=== PATIENT | female | born 1975 | race Caucasian/White ===

== ENCOUNTER 2017-03-22 13:51 | Emergency (ER) | payer OTHER ==
[2017-03-22 14:32] LABS: BASOPHIL# 0.1 X 10^3uL (0.0-0.1); BASOPHILS 0.8 % (0.0-2.0); BLOOD UREA NITROGEN 11 mg/dL (7-17); CHLORIDE 106 mmol/L (98-107); EOSINOPHILS 1.2 % (0.0-6.0); EOSINOPHILS# 0.1 X 10^3uL (0.0-0.4); EST GLOMERULAR FILTRATION RATE > 60 mL/min; GLUCOSE 94 mg/dL (70-100); HEMATOCRIT 43.4 % (36.0-48.0); HEMOGLOBIN 14.8 g/dL (12.0-16.0); LYMPHOCYTES 30.5 % (20.0-40.0); LYMPHOCYTES# 2.1 X 10^3uL (0.8-3.8); MEAN CELL VOLUME 90.9 fL (80.0-100.0); MEAN CORPUS. HGB CONCENTRATION 34.1 g/dL (32.0-36.0); MEAN PLATELET VOLUME 9.4 fL (7.4-10.4); MONOCYTES 6.5 % (2.0-10.0); MONOCYTES# 0.4 X 10^3uL (0.2-1.0); NEUTROPHILS# 4.1 X 10^3uL (2.6-6.7); PLATELET COUNT 268 X 10^3uL (130-440); RED BLOOD COUNT 4.77 X 10^6uL (4.20-6.10); RED CELL DISTRIBUTION WIDTH 11.6 % (11.5-14.5); SODIUM 140 mmol/L (137-145); WHITE BLOOD COUNT 6.8 X 10^3uL (3.9-10.7)
--- NOTE | 2017-03-22 14:45 | ER PHYSICIAN DOCUMENTATION ---
Physician Documentation [facility] Name:Gloria Alvarez Age:41 yrs Sex:Female :1975 Arrival Date:03/22/2017 Time:13:51 Bed5 Private MD: Kee Castillo Disposition: 03/22 14:35 Chart complete. cd Disposition: 03/22/17 14:36 Discharged to Home/Self Care. Impression: Tinea Capitus & Corporis (Ringworm), Lymphadenitis. - Condition is Good. - Discharge Instructions: LYMPHANGITIS, RINGWORM, Skin. - Prescriptions for Cephalexin 250 mg Oral Capsule - take 1 capsule by ORAL route every 6 hours for 10 days; 40 capsule. Clotrimazole 1 % Topical Cream - Apply to affected area 1 application by TOPICAL route every 12 hours; 15 gram. - Medical Reconciliation form form. - Follow up: Matilda Murray DO; When: 4- 6 days; Reason: Recheck today's complaints, Continuance of care. - Problem is new. - Symptoms are unchanged. - Notes: Use Lotrimen Cream on the rash two times a day for 10 days. Take Keflex 250mg by mouth every 6 hours for 10 days. Follow up with Dr. Marco Murray at the EP at [facility] [place] in 4 - 6 days. HPI: 14:00 This 41 yrs old Female presents to ER via Private Vehicle with complaints of cd Rash. 14:00 The patient presents with a rash that is though to be caused by erythema, warmth and cd rash under bot armpits for 5 days. Unknown etiology. Fever to 101 degrees F on Sunday, 4 days ago. The rash is located on the right axilla and left axilla. The rash can be described as erythematous, macular. Onset: The symptom(s)/episode began/occurred acutely, 5 day(s) ago. Severity of symptoms: At their worst the symptoms were mild in the emergency department the symptoms are unchanged. Historical: - Allergies: PENICILLINS; - Home Meds: 1. hormones 2. Hydrocodone-Acetaminophen 5-325 mg Oral - PMHx: back troubles; - Tetanus: < 10 years. - Ebola Screening: : Patient denies exposure to infectious person. Patient denies travel to an Ebola-affected area in the 21 days before illness onset. . - Social history: Smoking status: Patient states was never smoker of tobacco. Patient/guardian denies using alcohol, marijuana. ROS: 14:05 Cardiovascular: Negative for chest pain, palpitations, edema and pleuritic pain. cd Respiratory: Negative for shortness of breath, dyspnea on exertion, cough, sputum production, wheezing, hemoptysis and pleuritic chest pain. Abdomen/GI: Negative for abdominal pain, nausea, vomiting, diarrhea, constipation, distension, melena, hematochezia and hematemesis. Back: Negative for injury, pain or muscle spasms. 14:05 MS/Extremity: Negative for injury, deformity, edema, calf tenderness, pain or coldness. cd 14:05 Constitutional: Positive for fever, Negative for chills, poor PO intake. 14:05 Skin: Positive for erythema, of the right axilla and left axilla, well circumscribed rash, tender, warmth but no lymph nodes palpated. 14:05 All other systems are negative. Exam: 14:05 Constitutional: The patient appears in no acute distress, alert, awake. cd 14:05 Musculoskeletal/extremity: Exam is negative for acute changes. 14:05 Skin: Appearance: normal except for affected area, cellulitis, that is mild, confluent. Vital Signs: 14:03 BP 137 / 92; Pulse 90; Resp 18; Temp 98.6; Pulse Ox 96% ; Pain 7/10; st MDM: 14:26 Patient medically screened. cd 14:35 Differential diagnosis: fungal skin infection, Tinea, cellulitis. Data reviewed: vital cd signs, nurses notes, old medical records, and as a result, I will discharge patient, administer antibiotics Keflex and Lotrimin Cream. Counseling: I had a detailed discussion with the patient and/or guardian regarding: the historical points, exam findings, and any diagnostic results supporting the discharge/admit diagnosis, the need for outpatient follow up, for a recheck, with the patient's primary care provider, to return to the emergency department if symptoms worsen or persist or if there are any questions or concerns that arise at home. 03/22 14:33 Order name: CBC AUTO DIF, MDIF/RMOR IF IND; Complete Time: 17:03 EDMS 03/22 17:03 Interpretation: Normal. cd 03/22 14:34 Order name: BASIC METABOLIC PANEL; Complete Time: 17:03 EDMS 03/22 17:03 Interpretation: Normal. cd Dispensed Medications: No medications were administered Signatures: Joyce Cody, Kee Porter RN, MD MD cd
--- NOTE | 2017-03-22 14:45 | ER NURSING DOCUMENTATION ---
Nurse's Notes [facility] Name:Gloria Alvarez Age:41 yrs Sex:Female :1975 Arrival Date:03/22/2017 Time:13:51 Bed5 Private MD: Diagnosis:Tinea Capitus & Corporis (Ringworm);Lymphadenitis Presentation: 03/22 14:00 Presenting complaint: Patient states: pt has had red and warm areas under both armpits st for five days. Pt also had some fevers starting Sunday as high as 101. Transition of care: Camp. Anaphylaxis evaluation, no signs or symptoms of anaphylaxis were noted. 14:00 Acuity: JUDIT 3 st 14:00 Method Of Arrival: Private Vehicle st 14:00 Method Of Arrival: Private Vehicle st 14:05 Care prior to arrival: Medication(s) given: Ibuprofen Tylenol. st Triage Assessment: 14:01 General: Appears in no apparent distress, Behavior is cooperative. Pain: Complains of st pain in right axilla and left axilla Pain currently is 7 out of 10 on a pain scale. Cardiovascular: No deficits noted. Respiratory: No deficits noted. GI: No deficits noted. Derm: Rash noted that is on right axilla and left axilla. Historical: - Allergies: PENICILLINS; - Home Meds: 1. hormones 2. Hydrocodone-Acetaminophen 5-325 mg Oral - PMHx: back troubles; - Tetanus: < 10 years. - Ebola Screening: : Patient denies exposure to infectious person. Patient denies travel to an Ebola-affected area in the 21 days before illness onset. . - Social history: Smoking status: Patient states was never smoker of tobacco. Patient/guardian denies using alcohol, marijuana. Screenin:04 Infectious Disease Risk None. Abuse screen: Denies threats or abuse. Denies injuries st from another. pt feels safe at home. Nutritional screening: No deficits noted. Vital Signs: 14:03 BP 137 / 92; Pulse 90; Resp 18; Temp 98.6; Pulse Ox 96% ; Pain 7/10; st ED Course: 13:53 Patient arrived in ED. ama 13:54 Two, Summer, RN is Primary Nurse. st 14:[address] 14:04 Valuables Remains with patient Patient has correct armband on for positive st identification. Placed in gown. Bed in low position. 14:16 First set of blood cultures drawn by me. Inserted peripheral IV: 20 gauge in right mk2 antecubital area and blood collected. 14:26 Kee Carter MD is Attending Physician. sloane 14:35 Matilda Murray DO is Referral Physician. cd Administered Medications: No medications were administered Outcome: 14:36 Discharge ordered by MD. cd 14:44 Discharged to home ambulatory. st 14:44 Condition: stable 14:44 Discharge instructions given to patient, Instructed on discharge instructions, follow up and referral plans. medication usage, Prescriptions given X 2. 14:44 IV D/Leon st 14:44 [address] ED[address] 06 14:09 Discharge F/U Call: Unable to reach: no answer st Signatures: Joyce Cody, RN RN Kee Mata MD MD cd Kruger, Meg RN RN mk2 Anup Cullen, Reg Reg ama
== END 2017-03-22 14:45 | disposition home or self-care (01) ==
LOC: ER 13:51
DX: B35.0 Tinea barbae and tinea capitis (principal); B35.4 Tinea corporis; I88.9 Nonspecific lymphadenitis, unspecified; R50.9 Fever, unspecified
CPT/HCPCS: 80048; 85025; 99283